=== PATIENT | male | born 1990 | race Caucasian/White ===

== ENCOUNTER 2020-06-08 02:45 | Emergency (ER) | payer OTHER ==
[~2020-06-08] VITALS: Ht 180.3 cm; Wt 81.7 kg
== END 2020-06-08 03:31 | disposition home or self-care (01) ==
LOC: ED 02:45
DX: R50.83 Postvaccination fever (principal); T50.B95A Adverse effect of other viral vaccines, initial encounter
CPT/HCPCS: 99283

== ENCOUNTER 2022-06-19 09:03 | Emergency (ER) | payer OTHER ==
[~2022-06-19] VITALS: Ht 180.3 cm; Wt 81.7 kg
[2022-06-19] MEDS ORDERED: DEXAMETHASONE6 MG PO (10:33)
[2022-06-19 10:51] VITALS: BP 119/62
== END 2022-06-19 10:51 | disposition home or self-care (01) ==
LOC: ED 09:03
DX: U07.1 COVID-19 (principal)
CPT/HCPCS: 71045; 87880; 99283-25; A9270; C9803; U0003

== ENCOUNTER 2024-04-14 00:11 | Emergency (ER) | payer OTHER ==
[~2024-04-14] VITALS: Ht 180.3 cm; Wt 82.6 kg
[~2024-04-14 00:11] MED LIST: DEXAMETHASONE6 MG PO
[2024-04-14] MEDS ORDERED: MORPHINE SULFATE 4 MG/ML VIAL IV ONE (00:30)
[2024-04-14] MEDS ORDERED: SODIUM CHLORIDE 0.9% 1,000 ML IV ONE (00:30)
[2024-04-14] MEDS ORDERED: LORazepam 2 MG/ML VIAL IV ONE (00:30)
[2024-04-14] MEDS ORDERED: ondansetron HCL 4 MG/2 ML VIAL IV ONE (00:30)
[2024-04-14] MEDS ORDERED: levETIRAcetam 500 MG/5 ML VIAL IV ONE (00:30)
[2024-04-14] MEDS ORDERED: FISH OIL 1,0001 EAC6 (00:32)
[2024-04-14] MEDS ORDERED: CANDICIDAL CAP1 EACH ×2 (00:33)
[2024-04-14] MEDS ORDERED: VITAMIN D250 MCG (00:33)
[2024-04-14 00:57] LABS: BASOPHILS 0.2 % (0-2); EOSINOPHILS 1.6 % (0-6); HEMATOCRIT 45.3 % (35.0-50.0); HEMOGLOBIN 15.4 g/dL (12.0-18.0); LYMPHOCYTES 12.1 % (24-44); MCH 27.3 (27-36); MCV 80.2 fl (81-99); MONOCYTES 9.4 % (0-12); NEUTROPHILS 76.7 % (39-80); PLATELET COUNT 206 K/uL (140-440); RBC 5.64 M/ul (4.3-5.7); RDW 14.1 (10.5-15.0)
[2024-04-14 01:16] LABS: ALBUMIN 4.1 g/dL (3.4-5.0); ALBUMIN/GLOBULIN RATIO 1.52 (1.1-2.4); ANION GAP 11.5 (7-21); BILIRUBIN, TOTAL 0.6 mg/dL (0.2-1.0); BUN/CREATININE RATIO 10.83 (6.0-28.6); CALCIUM 8.9 mg/dL (8.5-10.1); CREATININE, SERUM 1.2 mg/dL (0.70-1.30); POTASSIUM 3.5 mmol/L (3.5-5.1); PROTEIN, TOTAL 6.8 g/dL (6.4-8.2)
[2024-04-14 01:19] LABS: BILIRUBIN, URINE NEGATIVE (negative); BLOOD/HGB, URINE NEGATIVE (Negative); KETONE, URINE NEGATIVE (Negative); LEUK ESTERASE, URINE NEGATIVE (negative); NITRITE, URINE NEGATIVE (negative); PH, URINE 5.5 (5-7)
[2024-04-14 01:39] LABS: INFLUENZA B NAA NEGATIVE (NEGATIVE); RESPIRATORY SYNCYTIAL VIR NAA NEGATIVE (NEGATIVE)
[2024-04-14] MEDS ORDERED: ONDANSETRON ODT8 MG PO ×3 (02:02→09:30)
[2024-04-14] MEDS ORDERED: ONDANSETRON 4 MG HOME.PACK SL ONE (02:15)
[2024-04-14 02:23] VITALS: BP 122/62
== END 2024-04-14 02:23 | disposition home or self-care (01) ==
LOC: ED 00:11
PROVIDERS: Family Medicine
DX: K52.9 Noninfective gastroenteritis and colitis, unspecified (principal); Z79.899 Other long term (current) drug therapy
CPT/HCPCS: 36415; 70450; 74177; 80053; 81003; 83735; 85025; 87502; 96375; 99284-25; A9270; J1953; J2060; J2270; J2405; J7030; Q9967; U0002

== ENCOUNTER 2024-04-14 07:38 | Emergency (ER) | payer OTHER ==
[~2024-04-14] VITALS: Ht 180.3 cm; Wt 84.8 kg
[~2024-04-14 07:38] MED LIST changes: +CANDICIDAL CAP1 EACH; +FISH OIL 1,0001 EAC6; +ONDANSETRON ODT8 MG PO; +VITAMIN D250 MCG
--- OUTSIDE RECORDS SUMMARY | 2024-04-14 07:45 | XMS ---
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 [place] VISIT COUNT (12 MO.) 2 [facility] TOTAL 2 NOTE: Visits indicate total known visits. ED/UCC VISIT TRACKING (12 MO.) 04/14/2024 07:39 [facility] TYPE: Emergency COMPLAINT: - SEIZURE 04/14/2024 00:11 [facility] TYPE: Emergency COMPLAINT: - WEAKNESS INPATIENT VISIT TRACKING (12 MO.) No inpatient visits to display in this time frame [email or web address]
[2024-04-14] MEDS ORDERED: SODIUM CHLORIDE 0.9% 1,000 ML IV ONE ×2 (08:30→09:15)
[2024-04-14] MEDS ORDERED: PANTOPRAZOLE SODIUM 40 MG/10 ML VIAL IV ONE (08:30)
[2024-04-14] MEDS ORDERED: LORazepam 2 MG/ML VIAL IV ONE (09:15)
[2024-04-14] MEDS ORDERED: ondansetron HCL 4 MG/2 ML VIAL IV ONE (09:30)
[2024-04-14] MEDS ORDERED: ONDANSETRON ODT8 MG PO (09:30)
[2024-04-14] MEDS ORDERED: LIDOCAINE & ANTACID 35 ML BTL PO ONE (09:45)
[2024-04-14] MEDS ORDERED: MORPHINE SULFATE 4 MG/ML VIAL IV ONE (10:30)
[2024-04-14 11:26] VITALS: BP 95/74
== END 2024-04-14 11:25 | disposition home or self-care (01) ==
LOC: ED 07:38
DX: K52.9 Noninfective gastroenteritis and colitis, unspecified (principal); Z79.899 Other long term (current) drug therapy
CPT/HCPCS: 96361; 96374; 96375; 99283-25; J2060; J2270; J2405; J2470; J7030